=== PATIENT | female | born 1970 | race Caucasian/White ===

== ENCOUNTER 2017-12-29 14:40 | Emergency (ER) | payer OTHER ==
[~2017-12-29] VITALS: Ht 154.9 cm; Wt 69.1 kg
[~2017-12-29 14:40] MED LIST: BUSP15 PO; GABA-533 PO; IPRA4AER IH; LITH300C3 PO; OLAN5TAB40 PO; OMEP20 PO; TOPI25 PO
[2017-12-29] MEDS ORDERED: TRAZ-144 PO (15:11)
[2017-12-29] MEDS ORDERED: BENZ0.5T44 PO (15:11)
[2017-12-29] MEDS ORDERED: BACL10TA PO (15:11)
[2017-12-29] MEDS ORDERED: KETOROLAC TROMETHAMINE 60 MG/2 ML VIAL IM ONE (18:00)
[2017-12-29] MEDS ORDERED: GABA-531 PO (18:05)
[2017-12-29 19:05] VITALS: BP 134/89
== END 2017-12-29 19:12 | disposition home or self-care (01) ==
LOC: EMS 14:44
DX: S93.402A Sprain of unspecified ligament of left ankle, initial encounter (principal); F31.9 Bipolar disorder, unspecified; Z79.899 Other long term (current) drug therapy; X50.1XXA Overexertion from prolonged static or awkward postures, initial encounter; Y93.01 Activity, walking, marching and hiking; Y92.89 Other specified places as the place of occurrence of the external cause; Y99.8 Other external cause status
CPT/HCPCS: 29515; 73610; 96372; 99284; J1885

== ENCOUNTER 2018-12-30 04:55 | Emergency (ER) | payer OTHER ==
[~2018-12-30] VITALS: Ht 154.9 cm; Wt 61.4 kg
[~2018-12-30 04:55] MED LIST changes: +BACL10TA PO; -BUSP15 PO; +GABA-531 PO; -GABA-533 PO; -LITH300C3 PO; -OMEP20 PO
[2018-12-30] MEDS ORDERED: TOPI100T37 PO (05:30)
[2018-12-30 07:18] LABS: BASOPHILS % (AUTO) 0.9 % (0.0-2.0); EOSINOPHILS % (AUTO) 0.4 % (1.0-6.0); HEMATOCRIT 38.4 % (36-46); HEMOGLOBIN 12.7 g/dL (12.0-16.0); LYMPHOCYTES # (AUTO) 2.1 K/uL (1.0-4.8); LYMPHOCYTES % (AUTO) 14.6 % (22.0-44.0); MEAN CORPUSCULAR HEMOGLOBIN 28.2 pg (26.0-34.0); MEAN CORPUSCULAR HGB CONC 33.1 G/dL (31.0-37.0); MEAN CORPUSCULAR VOLUME 85 fL (80-100); MONOCYTES # (AUTO) 1.2 K/uL (0.1-1.0); MONOCYTES % (AUTO) 8.6 % (2.0-9.0); NEUTROPHILS # (AUTO) 10.8 K/uL (1.8-7.7); NEUTROPHILS % (AUTO) 75.5 % (40.0-70.0); PLATELET COUNT (AUTO) 468 K/uL (150-450); RED CELL DISTRIBUTION WIDTH 14.2 % (11.5-14.5)
[2018-12-30 07:30] LABS: ANION GAP 11 mmol/L (8-16); CALCIUM, TOTAL 8.9 mg/dL (8.8-10.5); CARBON DIOXIDE 22 mmol/L (22-29); CHLORIDE 106 mmol/L (98-107); CREATININE 0.83 mg/dL (0.60-1.30); GLOMERULAR FILTR. RATE CALC > 60 mL/min (>60); GLUCOSE,RANDOM 102 mg/dL (70-110); POTASSIUM 3.5 mmol/L (3.5-5.1); SODIUM SERUM 139 mmol/L (136-145); UREA NITROGEN, BLOOD 10 mg/dL (7-18)
[2018-12-30 07:36] LABS: ALANINE AMINOTRANSFERASE 17 U/L (12-78); ALBUMIN 3.5 g/dL (3.4-5.0); ALKALINE PHOSPHATASE 50 U/L (46-116); ASPARTATE AMINOTRANSFERASE 10 U/L (15-37); BILIRUBIN,TOTAL 0.3 mg/dL (0.1-1.0); TOTAL PROTEIN, SERUM 6.8 g/dL (6.4-8.2)
[2018-12-30 10:14] VITALS: BP 128/83
== END 2018-12-30 10:19 | disposition home or self-care (01) ==
LOC: EMS 05:03
DX: F32.9 Major depressive disorder, single episode, unspecified (principal); E03.9 Hypothyroidism, unspecified; J44.9 Chronic obstructive pulmonary disease, unspecified; F17.210 Nicotine dependence, cigarettes, uncomplicated; F12.90 Cannabis use, unspecified, uncomplicated; Z59.0 Homelessness; Z79.899 Other long term (current) drug therapy; Z88.2 Allergy status to sulfonamides; Z88.1 Allergy status to other antibiotic agents; Z88.8 Allergy status to other drugs, medicaments and biological substances
CPT/HCPCS: 36415; 80053; 85025; 99284; 99406; G0480

== ENCOUNTER 2024-03-26 15:15 | Outpatient (CLI) | payer MEDICARE, OTHER ==
[~2024-03-26 15:15] MED LIST changes: -BACL10TA PO; +GABA-1181 PO; -GABA-531 PO; -OLAN5TAB40 PO; +OLAN5TAB94 PO; +TOPI100T37 PO; -TOPI25 PO
[2024-03-26 16:29] VITALS: BP 97/68; PULSE 98; RESP 18; TEMP 98; O2SAT 98
== END 2024-03-26 16:58 | disposition home or self-care (01) ==
LOC: CSU 15:15
PROVIDERS: ATTEND Nurse Practitioner Psychiatric/Mental Health
DX: F25.0 Schizoaffective disorder, bipolar type (principal); F41.1 Generalized anxiety disorder
CPT/HCPCS: 90839; 90840

== ENCOUNTER 2025-03-31 19:20 | Inpatient (IN) | payer OTHER ==
[~2025-03-31] VITALS: Ht 157.5 cm; Wt 68.0 kg
[~2025-03-31 19:20] MED LIST changes: +TOPI-258 PO; -TOPI100T37 PO
[2025-03-31] MEDS ORDERED: ALBU18HF12 IH (19:53)
[2025-03-31] MEDS ORDERED: RIZA10TA42 PO (19:53)
[2025-03-31] MEDS ORDERED: SEMA7TAB2 PO (19:53)
[2025-03-31] MEDS ORDERED: TRAZ150T79 PO (19:53)
[2025-03-31] MEDS ORDERED: VALA500T34 PO (19:53)
[2025-03-31] MEDS ORDERED: CLON0.5T4 PO (19:53)
[2025-03-31] MEDS ORDERED: IBUP600 PO (19:53)
[2025-03-31] MEDS ORDERED: GABA-534 PO (19:53)
[2025-03-31] MEDS ORDERED: ZIPR40CA38 PO (19:53)
[2025-03-31] MEDS ORDERED: ROPI1TAB46 PO (19:53)
[2025-03-31 20:00] LABS: PLATELET COUNT (AUTO) 317 K/uL (150-450); RED BLOOD CELL COUNT(AUTO) 4.46 MIL/uL (4.00-5.20); RED CELL DISTRIBUTION WIDTH 14.4 % (11.5-14.5); WHITE BLOOD COUNT (AUTO) 10.2 K/uL (4.5-11.0)
[2025-03-31 20:05] LABS: CALCIUM, TOTAL 8.4 mg/dL (8.8-10.5); CREATININE 0.99 mg/dL (0.60-1.30); GLOMERULAR FILTR. RATE CALC 59 mL/min (>60); GLUCOSE,RANDOM 112 mg/dL (70-110); SODIUM SERUM 138 mmol/L (136-145); UREA NITROGEN, BLOOD 24 mg/dL (7-18)
[2025-03-31 20:15] LABS: TROPONIN I-HIGH SENSITIVITY 4 ng/L (<51)
[2025-03-31 20:33] LABS: ASPARTATE AMINOTRANSFERASE 9 U/L (15-37); TOTAL PROTEIN, SERUM 6.7 g/dL (6.4-8.2)
[2025-03-31] MEDS ORDERED: ASPI-1450 PO (20:38)
[2025-03-31] MEDS ORDERED: ACETAMINOPHEN 325 MG TABLET PO PRN (23:00)
[2025-03-31] MEDS ORDERED: ONDANSETRON HCL 4 MG/2 ML VIAL IVP PRN (23:00)
[2025-03-31] MEDS ORDERED: POTASSIUM CHLORIDE 20 MEQ ER TABLET PO PRN (23:00)
[2025-03-31] MEDS ORDERED: POTASSIUM CHL 10 MEQ/WATER 50 ML IV PRN (23:00)
[2025-03-31] MEDS ORDERED: NITROGLYCERIN 0.4 MG SUBLINGUAL TABLET #25 SL PRN (23:00)
[2025-03-31] MEDS: ATORVASTATIN CALCIUM 40 MG TABLET PO ONE (23:20)
[2025-03-31] MEDS: RINGERS SOLUTION,LACTATED 500 ML IV ONE (23:21)
[2025-03-31] MEDS: ASPIRIN 81 MG CHEWABLE TABLET PO ONE (23:21)
[2025-03-31] MEDS ORDERED: BACL10TA PO (23:44)
[2025-03-31] MEDS ORDERED: BISA-151 PO (23:44)
[2025-03-31] MEDS ORDERED: LORA10TA7 PO (23:44)
[2025-03-31] MEDS ORDERED: MELA5TAB40 PO (23:44)
[2025-03-31] MEDS ORDERED: TRAM50TA5 PO (23:44)
[2025-03-31] MEDS: HEPARIN SODIUM,PORCINE 5,000 UNITS/ML VIAL SQ SCH (23:45)
[2025-04-01] VITALS (7 sets, daily range): BP systolic 89–109; BP diastolic 55–81; PULSE 64–75; RESP 17–18; TEMP 97.7–98.1; O2SAT 96–98
[2025-04-01 00:06] LABS: TROPONIN I-HIGH SENSITIVITY Less Than 4 ng/L (<51)
[2025-04-01] MEDS: POTASSIUM CHLORIDE 20 MEQ ER TABLET PO PRN (00:11)
[2025-04-01] MEDS: MORPHINE SULFATE 2 MG/ML SYRINGE IVP PRN ×2 (01:36→10:15)
[2025-04-01] MEDS: MELATONIN 5 MG TABLET PO PRN (01:56)
[2025-04-01] MEDS: TraZODone HCL 150 MG TABLET PO SCH (02:25)
[2025-04-01 06:10] LABS: CALCIUM, TOTAL 8.4 mg/dL (8.8-10.5); CREATININE 0.83 mg/dL (0.60-1.30); GLOMERULAR FILTR. RATE CALC > 60 mL/min (>60); GLUCOSE,RANDOM 88 mg/dL (70-110); SODIUM SERUM 142 mmol/L (136-145); UREA NITROGEN, BLOOD 19 mg/dL (7-18)
[2025-04-01 06:20] LABS: PLATELET COUNT (AUTO) 310 K/uL (150-450); RED BLOOD CELL COUNT(AUTO) 4.41 MIL/uL (4.00-5.20); RED CELL DISTRIBUTION WIDTH 14.5 % (11.5-14.5); TROPONIN I-HIGH SENSITIVITY 5 ng/L (<51); WHITE BLOOD COUNT (AUTO) 8.5 K/uL (4.5-11.0)
[2025-04-01] MEDS: DOCUSATE SODIUM 100 MG CAPSULE PO SCH (08:34)
[2025-04-01] MEDS: ASPIRIN 81 MG CHEWABLE TABLET PO SCH (08:34)
[2025-04-01] MEDS: RINGERS SOLUTION,LACTATED 500 ML IV ONE (09:54)
[2025-04-01] MEDS ORDERED: IOHEXOL 350 MG/ML 100 ML VIAL ONE (16:55)
[2025-04-01] MEDS: ATORVASTATIN CALCIUM 40 MG TABLET PO SCH (20:44)
[2025-04-01] MEDS ORDERED: TraZODone HCL 150 MG TABLET PO SCH (21:00)
[2025-04-01 21:34] LABS: APPEARANCE,URINE CLEAR (CLEAR); GLUCOSE, URINE (UA) NEGATIVE (NEGATIVE); LEUKOCYTE ESTERASE ,URINE SMALL (NEGATIVE); NITRATE,URINE NEGATIVE (NEGATIVE); OCCULT BLOOD,URINE NEGATIVE (NEGATIVE); SPECIFIC GRAVITIY, URINE > 1.030 (1.003-1.030)
[2025-04-01 21:57] LABS: SQUAMOUS EPITHELIAL CELL,UR Rare /LPF (None Seen)
[2025-04-02 00:21] VITALS: BP 101/65; PULSE 70; RESP 17; TEMP 97.7; O2SAT 99
[2025-04-02 05:45] VITALS: BP 98/68; PULSE 66; RESP 16; TEMP 97.9; O2SAT 97
[2025-04-02 06:44] LABS: CALCIUM, TOTAL 8.7 mg/dL (8.8-10.5); CREATININE 0.95 mg/dL (0.60-1.30); GLOMERULAR FILTR. RATE CALC > 60 mL/min (>60); GLUCOSE,RANDOM 94 mg/dL (70-110); SODIUM SERUM 141 mmol/L (136-145); TROPONIN I-HIGH SENSITIVITY 5 ng/L (<51); UREA NITROGEN, BLOOD 13 mg/dL (7-18)
[2025-04-02 08:34] VITALS: BP 113/73; PULSE 81; RESP 18; TEMP 97.3; O2SAT 99
[2025-04-02] MEDS ORDERED: PANT-31 PO (10:23)
== END 2025-04-02 11:30 | disposition home or self-care (01) | DRG 313 ==
LOC: EMS 19:21 → EDH 23:00 → 5S 04-01 00:40
PROVIDERS: ADMIT Internal Medicine; ATTEND Internal Medicine
DX: R07.89 Other chest pain (principal); D47.1 Chronic myeloproliferative disease; J44.9 Chronic obstructive pulmonary disease, unspecified; E03.9 Hypothyroidism, unspecified; I95.9 Hypotension, unspecified; Z87.891 Personal history of nicotine dependence; Z88.2 Allergy status to sulfonamides
CPT/HCPCS: 71045; 71275; 80048; 80076; 81001; 83735; 84443; 84484; 85025; 85379; 93005; 93306; 96360; 96361; 99285; G0378; J1644; J2270; J7120; 36415-L1; 36415-TC